=== PATIENT | male | born 1985 | race Caucasian/White ===

== ENCOUNTER 2020-11-18 06:55 | Emergency (ER) | payer OTHER ==
[2020-11-18 07:11] VITALS: PULSE 68
--- NOTE | 2020-11-18 07:14 | ERPHSYRPT ---
- History of Present Illness Time Seen by Provider: 11/18/20 07:13 Source: patient Exam Limitations: no limitations Patient Subjective Stated Complaint: L eye pain Triage Nursing Assessment: pt to ED c/o L eye pain. pt was welding around 1930 last night and woke at 0430 this morning with burning, itching and watering. no visual disturbances. no obvious fb in eye. last took tylenol at 0600 with some relief. rates 3/10 pain now. 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 This morning, he woke up and had redness in both eyes. There is also tenderness present. The left side is worse than the right. Patient has had this in the past and prefers drops over ointment for treatment. Patient has no visual changes. Timing/Duration: yesterday Location: bilateral eyes Severity: moderate Associated Symptoms: burning, sensitivity to light, redness Visual Assistive Devices: None Chemical Exposure: No Trauma: No Welding Arc/Tanning Bed Exposure: Yes Hx Tetanus, Diphtheria Vaccination/Date Given: Yes Hx Influenza Vaccination/Date Given: Yes Hx Pneumococcal Vaccination/Date Given: No Immunizations Up to Date: Yes Travel Risk - International Travel Have you traveled outside of the country in past 3 weeks: No - Coronavirus Screening Are you exhibiting any of the following symptoms?: No - Vaccine Status Have you recieved a Covid-19 vaccination: No - Review of Systems Constitutional: No Symptoms Eyes: Eye Redness, Tearing, Foreign Body Sensation, No Vision Changes, No Double Vision Ears, Nose, & Throat: No Symptoms Respiratory: No Symptoms Cardiac: No Symptoms Abdominal/Gastrointestinal: No Symptoms Genitourinary Symptoms: No Symptoms Musculoskeletal: No Symptoms Skin: No Symptoms Neurological: No Symptoms Psychological: No Symptoms Endocrine: No Symptoms Hematologic/Lymphatic: No Symptoms Immunological/Allergic: No Symptoms All Other Systems: Reviewed and Negative - Past Medical History Pertinent Past Medical History: No - Past Surgical History Past Surgical History: No - Social History Smoking Status: Current every day smoker Exposure to second hand smoke: No Drug Use: none Patient Lives Alone: No - Nursing Vital Signs Nursing Vital Signs: Initial Vital Signs Temperature 97.9 F 11/18/20 07:02 Pulse Rate 68 11/18/20 07:02 Respiratory Rate 18 11/18/20 07:02 Blood Pressure 153/101 11/18/20 07:02 O2 Sat by Pulse Oximetry 97 11/18/20 07:02 Pain Scale Pain Intensity 3 - Physical Exam General Appearance: mild distress, alert, anxiety Vision Acuity Degree Evaluation Phase: Uncorrected Vision Acuity Right Eye: 20/30 Vision Acuity Left Eye: 20/30 Eye Exam: bilateral eye: PERRL, EOMI, conjunctival inflammation Ears, Nose, Throat Exam: normal ENT inspection, moist mucous membranes Neck Exam: normal inspection, non-tender, supple, full range of motion Respiratory Exam: airway intact, No chest tenderness, No respiratory distress Gastrointestinal Exam: No tenderness Extremity Exam: normal inspection, normal range of motion, pelvis stable Neurologic: alert, oriented x 3, cooperative, museum preparator II-XII nml as tested, normal mood/affect, nml cerebellar function, nml station & gait, sensation nml Skin Exam: normal color, warm, dry Lymphatic: No adenopathy SpO2 Interpretation: normal SpO2: 97 O2 Delivery: Room Air - Course Nursing assessment & vital signs reviewed: Yes Ordered Tests: Medication Summary Generic Name Dose Route Start Last Admin Trade Name Freq PRN Reason Stop Dose Admin Tetracaine HCl 4 ml 11/18/20 07:47 Tetracaine 0.5% Steri-Unit Ruth Ann OP 11/18/20 07:48 STAT STA - Progress Progress: improved Counseled pt/family regarding: diagnosis, need for follow-up - Departure Departure Disposition: Home Clinical Impression: Exposure to welding light (arc), initial encounter Condition: Stable Critical Care Time: No Referrals: BALTA PARTIDA MD [Primary Care Provider] - Additional Instructions: Cool or warm compresses to bilateral eyes on an as-needed basis. May use whichever feels best for you. Add ibuprofen for pain control. Follow-up with loan associate for persistent symptoms. Take your medication as prescribed. Prescriptions: Hydrocodone/APAP 5/325 [[place] 5/325 mg] 1 each PO Q8H PRN PRN #6 tablet MDD 3 PRN Reason: Pain Neomycin/Polymyxin B/Dexametha [Zwrayy-Zntks-Ctfslhiy Eye Drop] 1 drops OP Q6H #5 ml
[2020-11-18] MEDS ORDERED: TETRACAINE 0.5% STERI-UNIT SOL OP STA (07:47)
[2020-11-18] MEDS ORDERED: TETRACAINE 0.5% STERI-UNIT SOL OP ONE (07:52)
[2020-11-18 08:01] VITALS: BP 144/95; O2SAT 96
== END 2020-11-18 08:05 | disposition home or self-care (01) ==
LOC: ED 06:55
DX: H57.12 Ocular pain, left eye (principal); W89.8XXA Exposure to other man-made visible and ultraviolet light, initial encounter
CPT/HCPCS: 99283

== ENCOUNTER 2022-04-12 10:45 | Emergency (ER) | payer OTHER ==
[2022-04-12 11:20] LABS: Appearance Cloudy (Clear); Bacteria None Seen /HPF (None Seen); Bilirubin Negative (Negative); Blood Negative (Negative); Epithelial Cells None Seen /HPF (None Seen); Glucose, Urine 100 mg/dL (Negative); Ketones Negative (Negative); Leukocyte Esterase Negative (Negative); Nitrite Negative (Negative); Ph 5.5 (4.6-8.0); Protein,Urine Dip Trace (Negative); RBC 0-2 /HPF (0-5); Specific Gravity >=1.030 (1.005-1.030); Urobilinogen 0.2 mg/dL (0.2); WBC 0-2 /HPF (0-5)
[2022-04-12] MEDS ORDERED: TORAdol 30 mg Injection ONE (11:22)
[2022-04-12] MEDS ORDERED: Sodium Chloride 0.9% 1000 ML 1,000 ML ONE (11:22)
[2022-04-12] MEDS: TORAdol 30 mg Injection IV ONE (11:24)
[2022-04-12] MEDS: Sodium Chloride 0.9% 1000 ML 1,000 ML IV STA (11:24)
[2022-04-12 11:47] LABS: Absolute Neutrophil Ct (ANC) 3.48 x10^3/uL (1.4-6.9); BASOPHIL % 1.5 % (0.0-0.4); Eosinophil % 2.9 % (0.00-5.0); Eosinophil (Absolute #) 0.19 x10^3/uL (0-0.5); Hematocrit 50.7 % (42-50); Hemoglobin 16.6 g/dL (12.5-18.0); IMMATURE GRAN # 0.02 x10^3u/L (0.00-0.03); IMMATURE GRAN % 0.3 % (0.00-0.4); Lymphocyte (Absolute #) 2.36 x10^3/uL (1.0-4.6); Mean Cell Volume 95.3 fL (78-100); Mean Corpuscular Hemoglobin 31.2 pg (26-32); Mean Corpuscular Hgb Concent. 32.7 g/dL (32-36); Mean Platelet Volume 9.8 fL (7.5-11.0); Monocytes % 6.1 % (0.0-12.0); Neutrophil % 53.2 % (36.0-66.0); Platelet Count 286 x10^3/uL (150-450); Red Blood Count 5.32 x10^6/uL (4.1-5.6); White Blood Count 6.6 x10^3/uL (4.0-10.5)
--- NOTE | 2022-04-12 11:59 | ERPHSYRPT ---
- History of Present Illness Time Seen by Provider: 04/12/22 10:47 Source: patient Exam Limitations: no limitations Patient Subjective Stated Complaint: Pt states "I have a knot in my belly that comes and goes. It hurts and it moves." Triage Nursing Assessment: PT presented alert and oriented X 3, skin pwd.Pt ambulates with an upright steady gait, able to speak in clear full sentencse. Pt has small golfball sized knot in right upper quadrant. Physician History: Patient here with "knot" in right upper quadrant. Has been going on for several months to years. No real pain today. But states that he does have pain that comes and goes. No falls or other trauma. No fever or chills. Patient states that became slightly worse. Therefore, presents to the emergency department today. Timing/Duration: week(s), intermittent Severity: moderate Allergies/Adverse Reactions: Penicillins Allergy (Verified 11/18/20 07:51) Home Medications: No Reportable Medications [No Reported Medications] 04/12/22 [History] Hx Tetanus, Diphtheria Vaccination/Date Given: Yes Hx Influenza Vaccination/Date Given: No Hx Pneumococcal Vaccination/Date Given: No Immunizations Up to Date: Yes Travel Risk - International Travel Have you traveled outside of the country in past 3 weeks: No - Coronavirus Screening Are you exhibiting any of the following symptoms?: No Close contact with a COVID-19 positive Pt in past 14-21 Days: No - Vaccine Status Have you recieved a Covid-19 vaccination: No - Review of Systems Constitutional: No Fever, No Chills Eyes: No Symptoms Ears, Nose, & Throat: No Symptoms Respiratory: No Cough, No Dyspnea Cardiac: No Chest Pain, No Edema, No Syncope Abdominal/Gastrointestinal: Abdominal Pain, No Nausea, No Vomiting, No Diarrhea Genitourinary Symptoms: No Dysuria Musculoskeletal: No Back Pain, No Neck Pain Skin: No Rash Neurological: No Dizziness, No Focal Weakness, No Sensory Changes Psychological: No Symptoms Endocrine: No Symptoms All Other Systems: Reviewed and Negative - Past Medical History Pertinent Past Medical History: No - Past Surgical History Past Surgical History: No - Social History Smoking Status: Current every day smoker Exposure to second hand smoke: No Drug Use: none Patient Lives Alone: No - Nursing Vital Signs Nursing Vital Signs: Initial Vital Signs Temperature 98.3 F 02/22/23 10:52 Pulse Rate 83 04/12/22 10:52 Respiratory Rate 20 04/12/22 10:52 Blood Pressure 150/106 04/12/22 10:52 O2 Sat by Pulse Oximetry 98 04/12/22 10:52 Pain Scale Pain Intensity 2 - Physical Exam General Appearance: no apparent distress, alert Eye Exam: PERRL/EOMI, eyes nml inspection Ears, Nose, Throat Exam: normal ENT inspection, TMs normal, pharynx normal, moist mucous membranes Neck Exam: normal inspection, non-tender, supple, full range of motion Respiratory Exam: normal breath sounds, lungs clear, No respiratory distress Cardiovascular Exam: regular rate/rhythm, normal heart sounds, normal peripheral pulses Gastrointestinal/Abdomen Exam: soft, No tenderness, No mass Back Exam: normal inspection, normal range of motion, No CVA tenderness, No vertebral tenderness Extremity Exam: normal inspection, normal range of motion, pelvis stable Neurologic Exam: alert, oriented x 3, cooperative, normal mood/affect, nml cerebellar function, nml station & gait, sensation nml, No motor deficits Skin Exam: normal color, warm, dry, No rash Lymphatic Exam: No adenopathy SpO2: 98 - Course Nursing assessment & vital signs reviewed: Yes Ordered Tests: Active Orders 24 hr Category Date Time Status IV Insertion STAT Care 04/12/22 11:02 Active ABDOMEN AND PELVIS W CONTRAST [CT] Stat Exams 04/12/22 11:02 Completed CBC W DIFF Stat Lab 04/12/22 11:17 Completed CMP Stat Lab 04/12/22 11:17 Completed LIPASE Stat Lab 04/12/22 11:17 Completed UA W/RFX UR CULTURE Stat Lab 04/12/22 11:13 Completed Medication Summary Discontinued Medications Generic Name Dose Route Start Last Admin Trade Name Hugh PRN Reason Stop Dose Admin Sodium Chloride 1,000 mls @ 999 mls/hr 04/12/22 11:02 04/12/22 11:24 Sodium Chloride 0.9% 1000 Ml IV 04/12/22 12:02 999 mls/hr .Q1H1M STA Administration Sodium Chloride Confirm 04/12/22 11:22 Sodium Chloride 0.9% 1000 Ml Administered 04/12/22 11:23 Dose 1,000 mls @ ud .ROUTE .STK-MED ONE Ketorolac Tromethamine 30 mg 04/12/22 11:02 04/12/22 11:24 Ketorolac Tromethamine 30 Mg/Ml Inj IV 04/12/22 11:03 30 mg STAT ONE Administration Ketorolac Tromethamine Confirm 04/12/22 11:22 Ketorolac Tromethamine 30 Mg/Ml Inj Administered 04/12/22 11:23 Dose 30 mg .ROUTE .STK-MED ONE Lab/Rad Data: Laboratory Result Diagrams 04/12/22 11:17 04/12/22 11:17 Laboratory Results 04/12/22 04/12/22 04/12/22 Range/Units 11:17 11:17 11:13 WBC 6.6 (4.0-10.5) x10^3/uL RBC 5.32 (4.1-5.6) x10^6/uL Hgb 16.6 (12.5-18.0) g/dL Hct 50.7 H (42-50) % MCV 95.3 (78-100) fL MCH 31.2 (26-32) pg MCHC 32.7 (32-36) g/dL RDW 13.0 (11.5-14.0) % Plt Count 286 (150-450) x10^3/uL MPV 9.8 (7.5-11.0) fL Gran % 53.2 (36.0-66.0) % Immature Gran % (Auto) 0.3 (0.00-0.4) % Nucleat RBC Rel Count 0.0 (0.00-0.1) % Eos # (Auto) 0.19 (0-0.5) x10^3/uL Immature Gran # (Auto) 0.02 (0.00-0.03) x10^3u/L Absolute Lymphs (auto) 2.36 (1.0-4.6) x10^3/uL Absolute Monos (auto) 0.40 (0.0-1.3) x10^3/uL Absolute Nucleated RBC 0.00 (0.00-0.01) x10^3u/L Lymphocytes % 36.0 (24.0-44.0) % Monocytes % 6.1 (0.0-12.0) % Eosinophils % 2.9 (0.00-5.0) % Basophils % 1.5 (0.0-0.4) % Absolute Granulocytes 3.48 (1.4-6.9) x10^3/uL Basophils # 0.10 (0-0.4) x10^3/uL Sodium 139 (137-145) mmol/L Potassium 4.0 (3.5-5.1) mmol/L Chloride 101 (98-107) mmol/L Carbon Dioxide 29 (22-30) mmol/L Anion Gap 13.5 (5-15) MEQ/L BUN 23 H (9-20) mg/dL Creatinine 1.00 (0.66-1.25) mg/dL Estimated GFR > 60.0 ML/MIN Glucose 172 H (74-106) mg/dL Calcium 9.0 (8.4-10.2) mg/dL Total Bilirubin 1.00 (0.2-1.3) mg/dL AST 39 (17-59) U/L ALT 41 (0-50) U/L Alkaline Phosphatase 67 (38-126) U/L Serum Total Protein 8.2 (6.3-8.2) g/dL Albumin 4.6 (3.5-5.0) g/dL Lipase 63 (23-300) U/L Urine Color Yellow (Yellow) Urine Appearance Cloudy A (Clear) Urine pH 5.5 (4.6-8.0) Ur Specific [place] >=1.030 A (1.005-1.030) Urine Protein Trace A (Negative) Urine Glucose (UA) 100 A (Negative) mg/dL Urine Ketones Negative (Negative) Urine Blood Negative (Negative) Urine Nitrite Negative (Negative) Urine Bilirubin Negative (Negative) Urine Urobilinogen 0.2 (0.2) mg/dL Ur Leukocyte Esterase Negative (Negative) U Hyaline Cast (Auto) 3-5 A (0-2) /LPF Urine Microscopic RBC 0-2 (0-5) /HPF Urine Microscopic WBC 0-2 (0-5) /HPF Ur Epithelial Cells None Seen (None Seen) /HPF Urine Bacteria None Seen (None Seen) /HPF Urine Culture Reflexed NO (NO) - Progress Progress: improved Progress Note: 04/12/22 11:59 differential diagnosis includes kidney stone, compression fracture, infection, U TI, triple AAA - basic labs including: CBC, lipase, CMP, UA, - insert IV for fluids, pain meds, nausea control - consider imaging: CT ab/pelvis 04/12/22 12:38 CT scan shows no obvious abnormalities. Patient will need close follow-up with PCP. Return here for any new or changing symptoms. Counseled pt/family regarding: lab results, diagnosis, need for follow-up, kavitha trujillo - Departure Departure Disposition: Home Clinical Impression: RUQ pain Condition: Stable Critical Care Time: No Referrals: DOCTOR,NO FAMILY [Primary Care Provider] - Follow up/PCP as directed Instructions: Severe Abdominal Pain, Adult (DC)
[2022-04-12 12:00] LABS: ADD URINE CULTURE? NO (NO)
[2022-04-12 12:07] LABS: ALBUMIN 4.6 g/dL (3.5-5.0); ALKALINE PHOSPHATASE 67 U/L (38-126); ANION GAP 13.5 MEQ/L (5-15); BLOOD UREA NITROGEN 23 mg/dL (9-20); CHLORIDE 101 mmol/L (98-107); Carbon Dioxide 29 mmol/L (22-30); EST GLOMERULAR FILTRATION RATE > 60.0 ML/MIN; Glucose 172 mg/dL (74-106); LIPASE 63 U/L (23-300); SGOT/AST 39 U/L (17-59); SGPT/ALT 41 U/L (0-50); SODIUM 139 mmol/L (137-145); Total Protein 8.2 g/dL (6.3-8.2)
--- NOTE | 2022-04-12 12:34 | XRAY ---
Indication: Right upper quadrant pain. Multiple contiguous axial images obtained through the abdomen and pelvis 80 cc Isovue 370 contrast. Comparison: None Lung bases clear with incidental tiny bibasilar calcified granulomas. Heart not enlarged. Stomach distended with food. Noncontrasted stomach and bowel loops appear nonobstructed. Contracted gallbladder without gallstones. Normal appendix. Mild diffuse scattered colonic fecal debris throughout. No free fluid/air. Remaining peripheral right lobe liver demonstrates subcentimeter hemangioma. Remaining liver, gallbladder, pancreas, spleen, adrenal glands, kidneys, ureters, bladder, and aorta are normal in CT appearance and attenuation. No pathologic retroperitoneal lymphadenopathy. Osseous structures intact. No ventral or inguinal hernias. Impression: Mild diffuse fecal stasis and small hepatic hemangioma. Remaining CT abdomen/pelvis with contrast exam is normal.
[2022-04-12 12:46] VITALS: BP 125/74; PULSE 78; O2SAT 94
== END 2022-04-12 12:54 | disposition home or self-care (01) ==
LOC: ED 10:45
DX: R10.11 Right upper quadrant pain (principal); Z28.310 Unvaccinated for COVID-19; Z72.0 Tobacco use
CPT/HCPCS: 36000; 36415; 74177; 80053; 81001; 83690; 85025; 96374; 99284; J1885